=== PATIENT | female | born 1935 | race Caucasian/White ===

== ENCOUNTER → 2016-06-10 | Outpatient (CLI) | payer MEDICARE, BC ==
[~2016-06-10] MED LIST: BACLOFEN 10MG T10 MG PO; CEFUROXIME AXE500 MG PO; CELEBREX 200MG200 MG PO; CENTRUM SILVER1 TA2 PO; DOXYCYCLINE100 M1 PO; LEVAQUIN500 MG PO; LIPITOR40 MG PO; LISINOPRIL AND1 TAB PO; OSTEO BI-FLEX1 TAB PO
--- NOTE | 2016-06-15 08:53 | RADIOLOGY REPORT PS360 ---
DIG MAMM-SCREEN [facility] W/CAD CAD Screening COMPARISON: Digital mammograms 01/11/2013 and 07/07/2011 INDICATION: There is a history of breast cancer patient's sister diagnosed before menopause. There is been previous cyst aspiration left breast and previous biopsies left breast. TECHNIQUE: Standard CC and MLO images were obtained. R2 CAD reviewed. FINDINGS: Moderate fiber glandular densities are seen in the central portions of both breast. There are 2 biopsy clips left breast. There is faint arterial calcification in each breast. There are few scattered benign-appearing calcination is in each breast. There is no suspicious lesion and no suspicious microcalcifications. IMPRESSION: Moderate breast density with no suspicious lesion seen recommend yearly follow-up BI-RADS CATEGORY: 2_Benign RECOMMENDED FOLLOWUP: 12M 12 MONTH FOLLOW-UP (A letter has been sent to the patient regarding results of the study.)
== END ==
LOC: RAD 10:38
DX: Z12.31 Encounter for screening mammogram for malignant neoplasm of breast (principal)
CPT/HCPCS: G0202